=== PATIENT | female | born 1965 | race Two or more races ===

== ENCOUNTER 2020-03-03 13:13 | Outpatient (CLI) | payer OTHER ==
[2020-03-03] MEDS ORDERED: NEILMED SINUS1 EAC1 NASAL (13:51)
[2020-03-03] MEDS ORDERED: SINGULAIR10 MG PO (13:52)
[2020-03-03] MEDS ORDERED: FLONASE16 GM NASAL (13:52)
[2020-03-03] MEDS ORDERED: ZYRTEC10 M3 PO (13:52)
== END 2020-03-03 13:40 | disposition home or self-care (01) ==
LOC: OFIC 805 13:13
PROVIDERS: ATTEND Otolaryngology
DX: J30.89 Other allergic rhinitis (principal); R51 Headache; H61.23 Impacted cerumen, bilateral; R09.81 Nasal congestion